=== PATIENT | male | born 1995 | race Caucasian/White ===

== ENCOUNTER 2017-01-31 18:43 | Emergency (ER) | payer SELFPAY ==
[~2017-01-31] VITALS: Ht 188 cm; Wt 123.9 kg
[2017-01-31] MEDS ORDERED: DEXAMETHASONE 4 MG TABLET PO ONE (19:30)
[2017-01-31] MEDS ORDERED: KETOROLAC 30 MG/1 ML IM ONE (19:30)
[2017-01-31] MEDS ORDERED: DEXAMETHASONE 4 MG TABLET ONE (19:41)
[2017-01-31] MEDS ORDERED: KETOROLAC 30 MG/1 ML ONE (19:41)
== END 2017-01-31 20:10 | disposition home or self-care (01) ==
LOC: ED 20:00
DX: H65.02 Acute serous otitis media, left ear (principal); H92.01 Otalgia, right ear; F12.10 Cannabis abuse, uncomplicated
CPT/HCPCS: 96372; 99283; J1885